=== PATIENT | female | born 1970 | race Hispanic/Latino ===

== ENCOUNTER 2021-12-14 06:35 | Day surgery (SDC) | payer MEDICAID ==
[2021-12-12 12:57] LABS: BASOPHILS % (AUTO) 1.1 % (0.0-5.0); EOSINOPHILS % (AUTO) 2.4 % (0.0-8.0); HEMATOCRIT 39.6 % (36-48); LYMPHOCYTES % (AUTO) 21.8 % (21.0-51.0); MEAN CORPUSCULAR HEMOGLOBIN 28.8 pg (27.0-33.0); MEAN CORPUSCULAR HGB CONC 31.8 g/dL (32.0-36.0); MEAN CORPUSCULAR VOLUME 90.4 fL (79-99); MONOCYTES % (AUTO) 6.1 % (3.0-13.0); NEUTROPHILS % (AUTO) 68.3 % (40.0-77.0); PLATELET COUNT (AUTO) 251 K/uL (130-400); RED BLOOD CELL COUNT(AUTO) 4.38 MIL/uL (4.00-5.50); RED CELL DISTRIBUTION WIDTH 13.4 % (11.0-15.5); WHITE BLOOD COUNT (AUTO) 9.6 K/uL (4.8-10.8)
[2021-12-12 13:09] LABS: INR 0.93 (0.85-1.15); PROTHROMBIN TIME 9.8 SEC (9.6-11.6)
[2021-12-12 13:14] LABS: CREATININE 1.4 mg/dL (0.5-1.5); POTASSIUM 4.3 mmol/L (3.5-5.1)
[2021-12-12 13:23] LABS: B-TYPE NATRIURETIC PEPTIDE < 5 pg/mL (0-100)
[2021-12-12 14:52] LABS: PARTIAL THROMBOPLASTIN TIME 19.8 SEC (26.3-35.5)
[2021-12-13 14:23] VITALS: BP 158/83
[2021-12-14] VITALS (10 sets, daily range): BP systolic 113–128; BP diastolic 64–84
[~2021-12-14] VITALS: Ht 160 cm; Wt 128.4 kg
[~2021-12-14 06:35] MED LIST: ATOR20TA65 PO; DULA1.5P SQ; HYDR100T27 PO; INSU100I3 SQ; INSU100V37 SQ; LEVO75CA5 PO; METO-409 PO; PARO40TA72 PO; SPIR1TAB PO
[2021-12-14] MEDS ORDERED: 0.9%NACL 1000ML 1,000 ML IV ONE (07:16)
[2021-12-14] MEDS ORDERED: NITROGLYCERIN 50MG VIAL ONE (07:49)
[2021-12-14] MEDS ORDERED: IOHEXOL 350 MG/ML 100ML INFUS..BTL IV ONE (07:49)
[2021-12-14] MEDS ORDERED: IOHEXOL-350 50ML VIAL IV ONE (07:49)
[2021-12-14] MEDS ORDERED: FENTANYL CITRATE PF 50 MCG/1 ML 2ML VIAL ONE (07:50)
[2021-12-14] MEDS ORDERED: MIDAZOLAM HCL 1 MG/ML 2ML VIAL ONE (07:50)
[2021-12-14] MEDS ORDERED: LIDOCAINE HCL 400MG/20ML VIAL ONE (07:50)
[2021-12-14] MEDS ORDERED: IOHEXOL-350 75 ML VIAL IV ONE (07:51)
[2021-12-14] MEDS ORDERED: HEPARIN 10,000 UNIT/10ML (1,000 UNIT/ML) VIAL ONE (08:23)
[2021-12-14] MEDS ORDERED: BIVALIRUDIN 250 MG/VIAL IV ONE (08:23)
[2021-12-14] MEDS ORDERED: DEXTROSE 50%-WATER 50 ML DISP.SYRIN IV PRN (09:00)
[2021-12-14] MEDS ORDERED: GLUCAGON 1MG KIT 1 MG ML IM PRN (09:00)
== END 2021-12-14 13:08 | disposition home or self-care (01) ==
LOC: DAH 06:35
PROVIDERS: ATTEND Internal Medicine Cardiovascular Disease
DX: I25.119 Atherosclerotic heart disease of native coronary artery with unspecified angina pectoris (principal); I48.0 Paroxysmal atrial fibrillation; I10 Essential (primary) hypertension; E11.9 Type 2 diabetes mellitus without complications; E78.5 Hyperlipidemia, unspecified; J45.909 Unspecified asthma, uncomplicated; F31.9 Bipolar disorder, unspecified; E03.9 Hypothyroidism, unspecified; I25.2 Old myocardial infarction; Z86.73 Personal history of transient ischemic attack (TIA), and cerebral infarction without residual deficits; Z90.710 Acquired absence of both cervix and uterus; Z98.891 History of uterine scar from previous surgery; Z90.49 Acquired absence of other specified parts of digestive tract; Z79.890 Hormone replacement therapy; Z79.4 Long term (current) use of insulin; Z79.01 Long term (current) use of anticoagulants; Z98.890 Other specified postprocedural states; Z79.899 Other long term (current) drug therapy
CPT/HCPCS: 36415; 71045; 80048; 82948; 83880; 85025; 85610; 85730; 93005; 93458; A4215; A4221; A4222; A4223; A4663; C1760; C1894; J1644; J2250; J3010; J3490; J7030; Q9967; 99156; 99157; J0583